=== PATIENT | male | born 1970 | race African-American/Black ===

== ENCOUNTER 2021-11-04 03:54 | Emergency (ER) | payer MEDICAID ==
[~2021-11-04] VITALS: Ht 200.7 cm; Wt 143.0 kg
[2021-11-04 05:57] LABS: BASOPHILS % 0.6 % (0.0-2.0); EOSINOPHILS % 7.4 % (0.0-5.0); HEMATOCRIT. 22.6 % (42.0-52.0); HEMOGLOBIN. 7.3 g/dL (14.0-18.0); LYMPHOCYTES % 22.5 % (20.0-50.0); MEAN CORPUSCULAR HEMOGLOBIN 27.5 pg (28.0-32.0); MEAN CORPUSCULAR VOLUME 84.6 fL (80.0-94.0); MEAN PLATELET VOLUME 7.1 fl (7.4-10.4); MONOCYTES % 9.5 % (2.0-8.0); PLATELET 208 x1000/uL (130-400); RED BLOOD CELL COUNT 2.67 mill/uL (4.7-6.1); RED CELL DISTRIBUTION WIDTH 15.7 % (11.6-14.6)
[2021-11-04 06:05] LABS: CHLORIDE 96 mEq/L (98-107)
[2021-11-04 10:20] VITALS: BP 161/56
== END 2021-11-04 10:45 | disposition short-term general hospital (02) ==
LOC: ER 04:47
DX: E87.70 Fluid overload, unspecified (principal); I12.0 Hypertensive chronic kidney disease with stage 5 chronic kidney disease or end stage renal disease; R06.03 Acute respiratory distress; N18.6 End stage renal disease; R00.0 Tachycardia, unspecified; E11.22 Type 2 diabetes mellitus with diabetic chronic kidney disease; I44.4 Left anterior fascicular block; D64.9 Anemia, unspecified; Z99.2 Dependence on renal dialysis; Z89.522 Acquired absence of left knee; Z89.521 Acquired absence of right knee
CPT/HCPCS: 36415; 71045; 80053; 83880; 85025; 93005; 99285